=== PATIENT | female | born 1980 | race Asian ===

== ENCOUNTER 2020-11-03 08:36 | Outpatient (CLI) | payer OTHER ==
--- NOTE | 2020-11-04 07:50 | Mammography Report ---
BILATERAL DIGITAL SCREENING MAMMOGRAM 3D/2D: 11/03/2020 CLINICAL: Routine screening. Comparison is made to exam dated: 10/31/2018 mammogram - [facility]. There are scatte red fibroglandular elements in both breasts. There is a biopsy clip in the right breast. No significant masses, calcifications, or other findings are seen in either breast. There has been no significant interval change. IMPRESSION: NEGATIVE There is no mammographic evidence of malignancy. A 1 year screening mammogram is recommended. This exam was interpreted at Station ID: [id number]. NOTE: For mammograms, a report in lay terms will be sent to the patient. Approximately 15% of breast malignancies will not be visualized mammographically. In the management of a palpable breast mass, a negative mammogram must not discourage biopsy of a clinically suspicious lesion. Electronically Signed By: Antonia solano/penrad:11/03/2020 10:52:49 ACR BI-RADS Category 1: Negative 3341F PARENCHYMAL PATTERN: (A) - The breast(s) demonstrate(s) scattered fibroglandular densities. BI-RADS CATEGORY: (1) - 1 RECOMMENDATION: (ANNUAL) - Recommend routine annual screening mammography. [id number] 1 year screening LATERALITY: (B)
== END 2020-11-03 08:37 | disposition home or self-care (01) ==
LOC: DI.N 08:36
DX: Z12.31 Encounter for screening mammogram for malignant neoplasm of breast (principal)

== ENCOUNTER 2021-12-17 09:27 | Outpatient (CLI) | payer OTHER ==
[2021-12-17 14:13] LABS: BASOPHILS % (AUTO) 0.6 %; EOSINOPHILS # (AUTO) 0.1 10^3/uL (0.0-0.7); EOSINOPHILS % (AUTO) 1.5 %; HCT - HEMATOCRIT 41.8 % (37.0-47.0); HGB - HEMOGLOBIN 13.4 g/dL (12.0-16.0); LYMPHOCYTES # (AUTO) 3.2 10^3/uL (1.5-3.5); LYMPHOCYTES % (AUTO) 49.5 %; MEAN CORPUSCULAR HEMOGLOBIN 28.5 pg (27.0-31.0); MEAN CORPUSCULAR HGB CONC 32.1 g/dL (32.0-36.0); MEAN CORPUSCULAR VOLUME 88.7 fL (81.0-99.0); MEAN PLATELET VOLUME 10.7 fL (7.9-10.8); MONOCYTES # (AUTO) 0.4 10^3/uL (0.0-1.0); MONOCYTES % (AUTO) 6.2 %; NEUTROPHILS # (AUTO) 2.7 10^3/uL (1.5-6.6); NEUTROPHILS % (AUTO) 41.9 %; PLT - PLATELET COUNT 428 10^3/uL (130-450); RED BLOOD COUNT 4.71 10^6/uL (4.20-5.40); RED CELL DISTRIBUTION WIDTH 12.1 % (12.0-15.0); WHITE BLOOD COUNT 6.5 x10^3/uL (4.8-10.8)
[2021-12-17 14:34] LABS: ALBUMIN 4.3 g/dL (3.2-5.5); ALBUMIN/GLOBULIN RATIO 1.2 (1.0-2.2); ALKALINE PHOSPHATASE 47 IU/L (42-121); ALT ALANINE AMINOTRANSFERASE 20 IU/L (10-60); AST ASPARTATE AMINOTRANSFERASE 16 IU/L (10-42); BILIRUBIN,TOTAL 0.5 mg/dL (0.2-1.0); BUN - BLOOD UREA NITROGEN 9 mg/dL (6-20); CALCIUM 9.2 mg/dL (8.5-10.3); CARBON DIOXIDE - CO2 27 mmol/L (21-32); CHLORIDE 101 mmol/L (101-111); CHOL/HDL RATIO 2.8 (<4.4); CHOLESTEROL 241 mg/dL; CREATININE 0.4 mg/dL (0.4-1.0); GFR - MDRD 176 (>89); GLUCOSE 91 mg/dL (70-100); HDL CHOLESTEROL 87 mg/dL; LDL CHOLESTEROL,CALCULATED 141 mg/dL; LDL/HDL RATIO 1.6 (<4.4); SODIUM 136 mmol/L (135-145); TOTAL PROTEIN 7.9 g/dL (6.7-8.2); TRIGLYCERIDES 64 mg/dL; VLDL CHOLESTEROL 13 mg/dL
== END 2021-12-17 09:28 | disposition home or self-care (01) ==
LOC: LAB.N 09:27
PROVIDERS: ATTEND Nurse Practitioner
DX: Z00.00 Encounter for general adult medical examination without abnormal findings (principal); Z13.220 Encounter for screening for lipoid disorders
CPT/HCPCS: 36415; 80053; 80061; 83721; 85025

== ENCOUNTER 2022-01-16 08:00 | Outpatient (CLI) | payer OTHER ==
--- NOTE | 2022-01-16 08:25 | XRAY Report ---
PROCEDURE: Toe(s) LT INDICATIONS: CONTUSION OF L 5TH TOE TECHNIQUE: 3 views of the fifth toe(s) acquired. COMPARISON: None FINDINGS: Bones: No fractures or dislocations. No suspicious bony lesions. Soft tissues: No suspicious soft tissue densities. IMPRESSION: No acute fifth toe fracture or dislocation. No gross soft tissue abnormality. Reviewed by: Branden Jordan MD on 01/16/2022 8:24 AM PDT Approved by: Branden Jordan MD on 01/16/2022 8:24 AM PDT Station ID: [id number]
--- NOTE | 2022-01-16 08:26 | XRAY Report ---
PROCEDURE: Knee 2 View BILAT INDICATIONS: CONTUSION OF KNEES TECHNIQUE: 3 views of the bilateral knee(s) were acquired. COMPARISON: None. FINDINGS: Bones: No fractures or dislocations. Very mild bilateral medial femoral tibial compartment joint sp karin narrowing is seen. No suspicious bony lesions. Soft tissues: No joint effusion. No suspicious soft tissue calcifications. IMPRESSION: Mild bilateral medial femoral tibial compartment joint space narrowing. No fracture or d islocation. No significant joint effusion. Reviewed by: Branden Jordan MD on 01/16/2022 8:24 AM PDT Approved by: Branden Jordan MD on 01/16/2022 8:24 AM PDT Station ID: [id number]
== END 2022-01-16 23:59 | disposition home or self-care (01) ==
LOC: DI.N 08:00
PROVIDERS: ATTEND Nurse Practitioner
DX: S80.00XA Contusion of unspecified knee, initial encounter (principal); S90.32XA Contusion of left foot, initial encounter; M25.862 Other specified joint disorders, left knee; M25.861 Other specified joint disorders, right knee
CPT/HCPCS: 73660

== ENCOUNTER 2022-05-18 14:55 | Outpatient (CLI) | payer OTHER ==
--- NOTE | 2022-05-18 15:27 | XRAY Report ---
PROCEDURE: Elbow 2 View RT INDICATIONS: RIGHT ELBOW PAIN TECHNIQUE: 2 views of the elbow were acquired. COMPARISON: None FINDINGS: Bones: No fractures or dislocations. No suspicious bony lesions. Soft tissues: No elbow joint effusion. No suspicious soft tissue calcifications. IMPRESSION: No evidence for acute osseous abnormality involving the right elbow. Reviewed by: Kip Us MD on 05/18/2022 3:26 PM PDT Approved by: Kip Us MD on 05/18/2022 3:26 PM PDT Station ID: [id number]
== END 2022-05-18 23:59 | disposition home or self-care (01) ==
LOC: DI.N 14:55
PROVIDERS: ATTEND Family Medicine
DX: S53.401A Unspecified sprain of right elbow, initial encounter (principal)

== ENCOUNTER 2022-10-11 14:47 | Outpatient (CLI) | payer OTHER ==
--- NOTE | 2022-10-13 08:25 | Mammography Report ---
BILATERAL DIGITAL SCREENING MAMMOGRAM 3D/2D: 10/11/2022 CLINICAL: Routine screening. Comparison is made to exams dated: 11/03/2020 mammogram - [facility], 10/31/2018 mamm ogram, 10/31/2018 ultrasound, and 05/14/2017 ultrasound biopsy - [facility]. There are scattered areas of fibroglandular density in both breasts (category b / 25%-50% glandular t issue). There is a biopsy clip in the right breast. No significant masses, calcifications, or other findings are seen in either breast. There has been no significant interval change. IMPRESSION: BENIGN There is no mammographic evidence of malignancy. A 1 year screening mammogram is recommended. This exam was interpreted at Station ID: [id number]. NOTE: For mammograms, a report in lay terms will be sent to the patient. Approximately 15% of breast malignancies will not be visualized mammographically. In the management of a palpable breast mass, a negative mammogram must not discourage biopsy of a clinically suspicious lesion. Electronically Signed By: David lugo/eloise:10/12/2022 11:44:33 ACR BI-RADS Category 2: Benign Finding(s) 3342F PARENCHYMAL PATTERN: (A) - The breast(s) demonstrate(s) scattered fibroglandular densities. BI-RADS CATEGORY: (2) - 2 RECOMMENDATION: (ANNUAL) - Recommend routine annual screening mammography. [id number] 1 year screening LATERALITY: (B)
== END 2022-10-11 14:48 | disposition home or self-care (01) ==
LOC: DI.N 14:47
PROVIDERS: ATTEND Nurse Practitioner
DX: Z12.31 Encounter for screening mammogram for malignant neoplasm of breast (principal)

== ENCOUNTER 2022-10-24 15:05 | Emergency (ER) | payer OTHER ==
[2022-10-24] MEDS ORDERED: KETOROLAC 30 MG/ML VIAL IM STA (15:46)
[2022-10-24] MEDS ORDERED: DEXAMETHASONE 10 MG/ML VIAL PO STA (15:47)
[2022-10-24] MEDS ORDERED: CHERRY SYRUP 10 ML UDC PO ONE (15:47)
--- NOTE | 2022-10-24 15:49 | ED Physician Documentation ---
PD HPI UPPER EXT INJURY - Stated complaint Stated Complaint: R ARM PX - Chief complaint Chief Complaint: Ext Problem - History obtained from History obtained from: Patient - History of Present Illness Location: Right, Elbow Type of injury: Twist Where injury occurred: Work Timing - onset: Enter time (0900), Today Timing - duration: Hours Timing - details: Abrupt onset, Still present Improved by: Rest, Immobilization Worsened by: Moving, Palpating Associated symptoms: No: Weakness, Numbness, Tingling, Swelling Contributing factors: No: Anticoagulated Similar symptoms before: Diagnosis (elbow strain) Recently seen: Clinic - Additonal information Additional information: 42-year-old Heather Dodson 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 She injured her elbow 1 year ago with an overuse injury. She has undergone physical therapy and injection with cortisone and has not had relief of her pain or symptoms. She has not had rest away from work in the past year. She has been at reduced activity and today she was asked to perform her daily duties at full capacity. She attempted this, lifting a box off of a shelf and immediately had a strain injury to her right elbow again. She states that she never had relief of her pain throughout the past year and that she now has worse pain than normal. Review of Systems Constitutional: denies: Fever Eyes: denies: Decreased vision Ears: denies: Ear pain Throat: denies: Sore throat Cardiac: denies: Chest pain / pressure Respiratory: denies: Cough GI: reports: Abdominal Pain (for 2 months), Diarrhea (for 2 months). denies: Nausea, Vomiting Skin: denies: Rash Musculoskeletal: reports: Extremity pain, Joint pain. denies: Neck pain, Back pain, Joint swelling Neurologic: denies: Generalized weakness, Focal weakness, Numbness PD PAST MEDICAL HISTORY - Past Medical History Past Medical History: No - Past Surgical History Past Surgical History: No - Present Medications Home Medications: Ambulatory Orders Medication Instructions Recorded Confirmed No Known Home Medications 10/24/22 10/24/22 - Allergies Allergies/Adverse Reactions: Allergies Allergy/AdvReac Type Severity Reaction Status Date / Time Sulfa (Sulfonamide Allergy Hives Verified 10/24/22 15:19 Antibiotics) - Social History Does the pt smoke?: No Smoking Status: Never smoker Does the pt drink ETOH?: Yes Does the pt have substance abuse?: No - Immunizations Immunizations are current?: Yes - POLST Patient has POLST: No PD ED PE NORMAL - Vitals Vital signs reviewed: Yes (hypertensive ) - General General: Alert and oriented X 3, No acute distress, Well developed/nourished - HEENT HEENT: Atraumatic, PERRL, EOMI - Neck Neck: Supple, no meningeal sign, No bony TTP - Respiratory Respiratory: No respiratory distress - Derm Derm: Normal color, Warm and dry, No rash - Extremities Extremities: No deformity, No edema, Other (Point tenderness specifically over the lateral epicondyles of the right elbow. There is improvement in pain with passive motion and worsening of pain with active motion. Distal neurovascular components are intact there is no bruising to the area) - Neuro Neuro: Alert and oriented X 3, crystal mounter 2-12 intact, No motor deficit, No sensory deficit, Normal speech Eye Opening: Spontaneous Motor: Obeys Commands Verbal: Oriented GCS Score: 15 Results - Vitals Vitals: Vital Signs - 24 hr 10/24/22 15:16 Temperature 36.7 C Heart Rate 81 Respiratory 14 Rate Blood Pressure 139/80 H O2 Saturation 100 Oxygen O2 Source Room air PD Medical Decision Making - ED course Complexity details: reviewed old records, reviewed results, considered differential, d/w patient, d/w family ED course: 42-year-old female with an overuse injury to her right elbow clinically appears to have epicondylitis and she has seen orthopedics and undergone physical therapy, without improvement. I did back up in the history and asked the patient if over the past year she has had any period of rest for any period of time. She indicates that she has continued to go to work every day. She did not have a period of rest of 1 or 2 weeks. I am wondering if she is just continues to irritate a chronic epicondylitis. I have asked the patient to place her arm into a sling to remove it from the sling multiple times a day to do exercises for range of motion of the shoulder and not to resume work until cleared by her orthopedic team. Today we have provided IM toradal and dexamethasone and we will have the patient follow up with ortho. Departure - Departure Disposition: 01 Home, Self Care Clinical Impression: Epicondylitis, lateral, right Condition: Stable Instructions: ED Epicondylitis Lateral Elbow Follow-Up: Pari Howard ARNP [Primary Care Provider] - Comments: Heather, today it looks like you have an inflammation from chronic overuse of your right elbow. Today we are trying a sling for rest and we have given you a dose of dexamethasone. My recommendation is to take 2 weeks off of work and follow-up with orthopedics as previously. The expectation with rest is an improvement in your general overall pain. It may not resolve. An important part of the treatment is to remove your arm from the sling and move your shoulder and range of motion at least 2-3 times per day. Forms: Activity restrictions
[2022-10-24 16:12] VITALS: BP 114/63
== END 2022-10-24 16:11 | disposition home or self-care (01) ==
LOC: ED 15:05
DX: M77.11 Lateral epicondylitis, right elbow (principal)
CPT/HCPCS: 96372; 99283

== ENCOUNTER 2022-10-24 20:12 | Emergency (ER) | payer OTHER ==
[2022-10-24] MEDS ORDERED: oxyCODONE 5 MG TABLET PO STA (20:41)
--- NOTE | 2022-10-24 20:43 | ED Physician Documentation ---
PD HPI UPPER EXT INJURY - Stated complaint Stated Complaint: RT SHOULDER PX - Chief complaint Chief Complaint: Ext Problem - History obtained from History obtained from: Patient - History of Present Illness Location: Shoulder, Elbow Pain level max: 8 Pain level now: 7 Associated symptoms: No: Weakness, Numbness, Tingling, Swelling, Discolored Recently seen: Not recently seen - Additonal information Additional information: Patient is a 42-year-old female who presents to the emergency department complaint of right shoulder and right elbow pain. She states she was at work today lifting heavy boxes when she felt a pop in her shoulder and elbow. Worse with movement, better with rest. She was seen here earlier today and given Toradol and dexamethasone. She states she is continuing to have pain. She was placed into a sling but she states it is not helping. No numbness or tingling. Has not taken anything else for pain. Patient is right-handed. Review of Systems Constitutional: denies: Fever, Chills Respiratory: denies: Cough GI: denies: Nausea, Vomiting, Diarrhea PD PAST MEDICAL HISTORY - Past Medical History Past Medical History: No - Past Surgical History Past Surgical History: No - Present Medications Home Medications: Ambulatory Orders Medication Instructions Recorded Confirmed Meloxicam [Mobic] 7.5 mg PO BID PRN #20 tablet 10/24/22 oxyCODONE [Roxicodone] 5 mg PO Q6H PRN #10 tablet MDD 6 10/24/22 - Allergies Allergies/Adverse Reactions: Allergies Allergy/AdvReac Type Severity Reaction Status Date / Time Sulfa (Sulfonamide Allergy Hives Verified 10/24/22 20:24 Antibiotics) - Social History Does the pt smoke?: No Smoking Status: Never smoker Does the pt drink ETOH?: Yes Does the pt have substance abuse?: No - Immunizations Immunizations are current?: Yes - POLST Patient has POLST: No PD ED PE NORMAL - Vitals Vital signs reviewed: Yes - General General: Alert and oriented X 3, No acute distress - Derm Derm: Warm and dry - Extremities Extremities: Other - Neuro Neuro: Alert and oriented X 3 - Free text exam Free text exam: Pectoralis muscle. There is no bony tenderness over the clavicle. Mild tenderness at the insertion of the biceps tendon. She also has some pain with pronation of the right elbow. Has tenderness about the lateral and medial epicondyles of the elbow. Full range of motion. Neurovascular intact. Full range of motion of the right shoulder but does have pain in the upper pectoralis area. Otherwise normal exam of the arm. Results - Vitals Vitals: Vital Signs - 24 hr 10/24/22 10/24/22 20:25 21:20 Temperature 36.8 C Heart Rate 77 77 Respiratory 16 16 Rate Blood Pressure 132/68 H 124/62 O2 Saturation 99 99 Oxygen O2 Source Room air - Rads (name of study) R shoulder xray Radiology: Final report received, See rad report R elbow xray Radiology: Final report received, See rad report PD Medical Decision Making - ED course Complexity details: reviewed results, re-evaluated patient, considered differential, d/w patient ED course: No acute findings on x-ray. Patient was placed in a sling earlier today for comfort. Her pain resolved with a dose of oxycodone. Will place on pain medication for home and have her follow-up with her doctor for further care. Likely muscular strain and elbow strain. Patient counseled regarding signs and symptoms for which I believe and urgent re-evaluation would be necessary. Patient with good understanding of and agreement to plan and is comfortable going home at this time This document was made in part using voice recognition software. While efforts are made to proofread this document, sound alike and grammatical errors may occur. L&I paperwork completed Departure - Departure Disposition: 01 Home, Self Care Clinical Impression: Right shoulder strain Qualifiers: Encounter type: initial encounter Qualified Code(s): S46.911A - Strain of unspecified muscle, fascia and tendon at shoulder and upper arm level, right arm, initial encounter Strain of right elbow Qualifiers: Encounter type: initial encounter Qualified Code(s): S46.911A - Strain of unspecified muscle, fascia and tendon at shoulder and upper arm level, right arm, initial encounter Condition: Good Instructions: ED Strain Muscle Ext Follow-Up: your,doctor in 3 days [Other] Prescriptions: Meloxicam [Mobic] 7.5 mg PO BID PRN #20 tablet PRN Reason: Pain oxyCODONE [Roxicodone] 5 mg PO Q6H PRN #10 tablet MDD 6 PRN Reason: pain Comments: [facility] [place] Your x-rays are normal tonight. Please follow-up with your doctor for further care. They may want to refer you to an orthopedist. You can use the sling as needed for comfort. I am prescribing a short course of narcotic pain medication for you. These are potentially dangerous and addictive medications that should be used carefully. These medications may constipate you. Take an oqwt-pci-zfujlvj stool softener (docusate) twice daily with plenty of water while taking these medications. If you go 24 hours without a bowel movement, take [id number] miralax, per package instructions. Do not drink or drive while taking these medications. If you received narcotic or sedating medications while in the emergency department, do not drive for 24 hours. Store this medication in a safe, secure place and out of reach of children. It is a violation of federal law to give or sell this medication to another person or to use in a manner other than prescribed. The ED will not refill narcotic prescriptions, including prescriptions lost or stolen. To dispose of unwanted medications: 1. [facility] at [address] in [place] has a medication drop box. They accept prescription medications (in pill form) Sunday through Sunday 9:00 a.m. to 5:00 p.m. 2. The [facility] [employer] accepts prescription medications (in pill form only) for disposal year round. Call for more information. 3. Contact the [facility] for the next [facility] sponsored prescription drug collection event. , [phone], or [phone]; Discharge Date/Time: 10/24/22 21:59
[2022-10-24 21:21] VITALS: BP 124/62
--- NOTE | 2022-10-24 21:40 | XRAY Report ---
PROCEDURE: Elbow 3 View RT INDICATIONS: R elbow pain after lifting boxes TECHNIQUE: 3 views of the elbow were acquired. COMPARISON: None. FINDINGS: Bones: No fractures or dislocations. No suspicious bony lesions. Soft tissues: No elbow joint effusion. No suspicious soft tissue calcifications. IMPRESSION: 1. No acute bony abnormality. Reviewed by: William Ramirez MD on 10/24/2022 9:39 PM PST Approved by: William Ramirez MD on 10/24/2022 9:39 PM PST Station ID: [id number]
--- NOTE | 2022-10-24 21:42 | XRAY Report ---
PROCEDURE: Shoulder 3 View RT INDICATIONS: R shoulder pain after lifting boxes TECHNIQUE: 3 views of the shoulder were acquired. COMPARISON: None. FINDINGS: Bones: No fractures or dislocations. There is mild acromial clavicular joint degeneration. No suspi cious bony lesions. Visualized ribs appear intact. Soft tissues: There is small calcifications along the distal rotator cuff compatible with calcific te ndinitis. IMPRESSION: 1. No fracture or dislocation. 2. Calcifications along the distal rotator cuff compatible with calcific tendinitis. Reviewed by: William Ramirez MD on 10/24/2022 9:40 PM [facility] Approved by: William Ramirez MD on 10/24/2022 9:40 PM [facility] Station ID: [id number]
== END 2022-10-24 21:59 | disposition home or self-care (01) ==
LOC: ED 20:12
DX: S46.911A Strain of unspecified muscle, fascia and tendon at shoulder and upper arm level, right arm, initial encounter (principal); M77.11 Lateral epicondylitis, right elbow; X50.0XXA Overexertion from strenuous movement or load, initial encounter; Y93.G1 Activity, food preparation and clean up; Y92.212 Middle school as the place of occurrence of the external cause; Y99.0 Civilian activity done for income or pay
CPT/HCPCS: 73030; 73080; 96372; 99283; 99284; A9270

== ENCOUNTER 2023-04-23 11:04 | Outpatient (CLI) | payer OTHER ==
[2023-04-23 18:15] LABS: BASOPHILS % (AUTO) 0.5 %; EOSINOPHILS # (AUTO) 0.2 10^3/uL (0.0-0.7); EOSINOPHILS % (AUTO) 2.6 %; HCT - HEMATOCRIT 42.3 % (37.0-47.0); HGB - HEMOGLOBIN 13.5 g/dL (12.0-16.0); LYMPHOCYTES % (AUTO) 45.6 %; MEAN CORPUSCULAR HEMOGLOBIN 28.6 pg (27.0-31.0); MEAN CORPUSCULAR HGB CONC 31.9 g/dL (32.0-36.0); MEAN CORPUSCULAR VOLUME 89.6 fL (81.0-99.0); MEAN PLATELET VOLUME 10.4 fL (7.9-10.8); MONOCYTES # (AUTO) 0.5 10^3/uL (0.0-1.0); MONOCYTES % (AUTO) 7.3 %; NEUTROPHILS # (AUTO) 2.8 10^3/uL (1.5-6.6); NEUTROPHILS % (AUTO) 43.7 %; PLT - PLATELET COUNT 400 10^3/uL (130-450); RED BLOOD COUNT 4.72 10^6/uL (4.20-5.40); RED CELL DISTRIBUTION WIDTH 12.4 % (12.0-15.0); WHITE BLOOD COUNT 6.5 x10^3/uL (4.8-10.8)
[2023-04-23 18:30] LABS: ALBUMIN 4.7 g/dL (3.2-5.5); ALBUMIN/GLOBULIN RATIO 1.6 (1.0-2.2); ALKALINE PHOSPHATASE 52 IU/L (42-121); ALT ALANINE AMINOTRANSFERASE 28 IU/L (10-60); AST ASPARTATE AMINOTRANSFERASE 20 IU/L (10-42); BILIRUBIN,TOTAL 0.5 mg/dL (0.2-1.0); BUN - BLOOD UREA NITROGEN 6 mg/dL (6-20); CALCIUM 9.7 mg/dL (8.5-10.3); CARBON DIOXIDE - CO2 27 mmol/L (21-32); CHLORIDE 102 mmol/L (101-111); CHOL/HDL RATIO 3.7 (<4.4); CHOLESTEROL 257 mg/dL; CREATININE 0.5 mg/dL (0.6-1.3); GFR - MDRD 135 (>89); GLUCOSE 80 mg/dL (74-104); HDL CHOLESTEROL 69 mg/dL; LDL CHOLESTEROL,CALCULATED 146 mg/dL; LDL/HDL RATIO 2.1 (<4.4); POTASSIUM 3.9 mmol/L (3.5-4.5); SODIUM 136 mmol/L (135-145); TOTAL PROTEIN 7.7 g/dL (6.4-8.9); TRIGLYCERIDES 208 mg/dL (48-352); VLDL CHOLESTEROL 42 mg/dL
[2023-04-23 18:40] LABS: THYROID STIMULATING HORMONE 1.89 uIU/mL (0.34-5.60)
== END 2023-04-23 11:05 | disposition home or self-care (01) ==
LOC: LAB.N 11:04
PROVIDERS: ATTEND Nurse Practitioner
DX: Z00.00 Encounter for general adult medical examination without abnormal findings (principal)
CPT/HCPCS: 36415; 80053; 80061; 83721; 84443; 85025

== ENCOUNTER 2023-08-21 08:00 | Outpatient (CLI) | payer OTHER ==
--- NOTE | 2023-08-21 16:21 | XRAY Report ---
PROCEDURE: Shoulder 3 View RT INDICATIONS: RIGHT SHOULDER PAIN TECHNIQUE: 3 views of the shoulder were acquired. COMPARISON: MRI 02/13/2023 FINDINGS: Bones: Mild to moderate acromioclavicular and glenohumeral degenerative changes. No displaced fractu re or dislocation. Possible calcific tendinopathy. Soft tissues: No suspicious calcifications. IMPRESSION: Mild to moderate degenerative changes. Possible calcific tendinopathy. Soft tissue structures are bet ter assessed on prior MRI. Reviewed by: David Goldman MD on 08/21/2023 4:20 PM PST Approved by: David Goldman MD on 08/21/2023 4:20 PM PST Station ID: [id number]
== END 2023-08-21 23:59 | disposition home or self-care (01) ==
LOC: DI.WOS 08:00
PROVIDERS: ATTEND Orthopaedic Surgery
DX: M19.011 Primary osteoarthritis, right shoulder (principal); M75.31 Calcific tendinitis of right shoulder

== ENCOUNTER 2023-10-08 09:17 | Outpatient (CLI) | payer OTHER ==
--- NOTE | 2023-10-09 16:23 | Mammography Report ---
BILATERAL DIGITAL SCREENING MAMMOGRAM 3D/2D: 10/08/2023 CLINICAL: Routine screening. Comparison is made to exams dated: 10/11/2022 mammogram, 11/03/2020 [facility], 10/31/2018 mammogram, 10/31/2018 ultrasound, and 05/14/2017 ultrasound biopsy - [facility]. There are scattered areas of fibroglandular density in both breasts (category b / 25%-50% glandular t issue). There is a focal asymmetry in the right breast at 12 o'clock posterior depth. No other significant masses, calcifications, or other findings are seen in either breast. IMPRESSION: INCOMPLETE: NEEDS ADDITIONAL IMAGING EVALUATION The focal asymmetry in the right breast is indeterminate. Additional views with possible ultrasound are recommended. Based on the Tyrer Cuzick model (a risk assessment model) the patient's lifetime risk is 11.9% and he r 10 year risk is 1.9%. According to the ACR, ACS, and NCCN guidelines, an annual breast MRI exam trenton ng with mammogram is recommended if the patient's lifetime risk is 20% or greater. This exam was interpreted at Station ID: [id number]. NOTE: For mammograms, a report in lay terms will be sent to the patient. Approximately 15% of breast malignancies will not be visualized mammographically. In the management of a palpable breast mass, a negative mammogram must not discourage biopsy of a clinically suspicious lesion. Electronically Signed By: Eva ramos/eloise:10/08/2023 13:39:10 ACR BI-RADS Category 0: Incomplete 3340F PARENCHYMAL PATTERN: (A) - The breast(s) demonstrate(s) scattered fibroglandular densities. BI-RADS CATEGORY: (0) - 0 Mammo and [place] [id number] Immediate follow-up LATERALITY: (B)
== END 2023-10-08 09:18 | disposition home or self-care (01) ==
LOC: DI.N 09:17
DX: Z12.31 Encounter for screening mammogram for malignant neoplasm of breast (principal); R92.323 Mammographic fibroglandular density, bilateral breasts; R92.8 Other abnormal and inconclusive findings on diagnostic imaging of breast

== ENCOUNTER 2023-11-20 12:08 | Outpatient (CLI) | payer OTHER ==
--- NOTE | 2023-11-21 11:15 | Ultrasound Report ---
LIMITED ULTRASOUND OF RIGHT BREAST: 11/20/2023 CLINICAL: Patient returns today to evaluate a focal asymmetry in the right breast. Comparison is made to exams dated: 11/20/2023 mammogram, 10/08/2023 mammogram, 10/11/2022 mammogram, 2020 mammogram - [facility], 10/31/2018 mammogram, and 10/31/2018 ultrasound - [facility]. Color flow and real-time ultrasound of the right breast 12 o'clock region were performed. Sosa scale images of the real-time examination were reviewed. Fibroglandular tissue but no mass is identifed in the area of the mammographic asymmetry in the right breast 12 o'clock position posterior depth. Previously biopied benign mass is seen in the 12 o'clock position anterior depth. IMPRESSION: BENIGN No sonographic abnormality is seen corresponding to the mammographic asymmetry in the right breast 12 o'clock position, which is compatible with normal fibroglandular tissue. There is no sonographic evidence of malignancy. Return to annual mammogram screening schedule is recommended. This exam was interpreted at Station ID: [id number]. Electronically Signed By: Fadi Shah M.D. ar/:11/20/2023 20:32:01 Ultrasound BI-RADS: 2 Benign BI-RADS CATEGORY: (2) - 2 Mammogram [id number] return to screening LATERALITY: (B)
--- NOTE | 2023-11-21 11:15 | Mammography Report ---
UNILATERAL RIGHT DIGITAL DIAGNOSTIC MAMMOGRAM 3D/2D WITH SPOT COMPRESSION: 11/20/2023 CLINICAL: Patient returns today to evaluate a focal asymmetry in the right breast. Comparison is made to exams dated: 10/08/2023 mammogram, 10/11/2022 mammogram, 11/03/2020 mammogram - [facility], and 10/31/2018 mammogram - [facility]. There are scattered areas of fibroglandular density in the right breast (category b / 25%-50% glandul ar tissue). There is a stable benign biopsy clip in the right breast. There is a focal asymmetry in the right breast at 12 o'clock posterior depth. This is less prominent . No other significant masses or calcifications are seen in the breast. IMPRESSION: INCOMPLETE: NEEDS ADDITIONAL IMAGING EVALUATION The focal asymmetry in the right breast resembles fibroglandular tissue and is indeterminate. An ult rasound is recommended. Based on the Tyrer Cuzick model (a risk assessment model) the patient's lifetime risk is 11.9% and he r 10 year risk is 1.9%. According to the ACR, ACS, and NCCN guidelines, an annual breast MRI exam trenton ng with mammogram is recommended if the patient's lifetime risk is 20% or greater. This exam was interpreted at Station ID: [id number]. NOTE: For mammograms, a report in lay terms will be sent to the patient. Approximately 15% of breast malignancies will not be visualized mammographically. In the management of a palpable breast mass, a negative mammogram must not discourage biopsy of a clinically suspicious lesion. Electronically Signed By: Fadi mcclendon/penrad:11/20/2023 20:29:52 ACR BI-RADS Category 0: Incomplete 3340F PARENCHYMAL PATTERN: (A) - The breast(s) demonstrate(s) scattered fibroglandular densities. BI-RADS CATEGORY: (0) - 0 Ultrasound [id number] Immediate follow-up LATERALITY: (R)
== END 2023-11-20 12:09 | disposition home or self-care (01) ==
LOC: DI 12:08
PROVIDERS: ATTEND Nurse Practitioner
DX: R92.8 Other abnormal and inconclusive findings on diagnostic imaging of breast (principal); R92.321 Mammographic fibroglandular density, right breast

== ENCOUNTER 2024-05-26 10:43 | Outpatient (CLI) | payer OTHER ==
[2024-05-26] MEDS ORDERED: LIDOCAINE-MPF 1% 5 ML VIAL ONE (11:01)
[2024-05-26] MEDS ORDERED: BUPIVACAINE 0.5% PF 10 ML VIAL ONE (11:02)
[2024-05-26] MEDS ORDERED: TRIAMCINOLONE 40 MG/ML VIAL ONE (11:02)
[2024-05-26] MEDS: LIDOCAINE-MPF 1% 5 ML VIAL TD ONE (13:00)
[2024-05-26] MEDS: TRIAMCINOLONE 40 MG/ML VIAL IM ONE (13:01)
[2024-05-26] MEDS: BUPIVACAINE 0.5% PF 10 ML VIAL IM ONE (13:02)
--- NOTE | 2024-05-27 05:31 | Ultrasound Report ---
PROCEDURE: Injection Single Tendon INDICATIONS: RIGHT BICEP TENDINITIS TECHNIQUE: The indications, alternatives, benefits, risks, and complications of the procedure were explained to the patient. Written informed consent was obtained and placed in the chart. The patient was placed in an appropriate position on the fluoroscopy table, and a site was chosen for percutaneous access un jasson ultrasound guidance. Local anesthetic was administered using a 1% lidocaine solution. A hypoder nadia or spinal needle was then used to access the symptomatic joint. Intra-articular location of the needle tip was confirmed by real time ultrasound imaging, followed by steroid administration. The ne edle was then withdrawn, and a bandage applied to the puncture site. FINDINGS: Joint injected: Right bicep tendon sheath Medications injected: 2 mL of 40 mg/mL Kenalog and 0.5% Ropivacaine mixture. Complications: None. IMPRESSION: Successful ultrasound guided administration of steroid and anaesthetic solution into the right bicep tendon sheath. Reviewed by: Teena Ramos MD, PhD on 05/27/2024 5:29 AM PDT Approved by: Teena Ramos MD, PhD on 05/27/2024 5:29 AM PDT Station ID: [id number]
== END 2024-05-26 10:44 | disposition home or self-care (01) ==
LOC: DI 10:43
PROVIDERS: ATTEND Orthopaedic Surgery
DX: M75.21 Bicipital tendinitis, right shoulder (principal)
CPT/HCPCS: 20550